=== PATIENT | female | born 1945 | race Caucasian/White ===

== ENCOUNTER 2022-10-19 15:10 | Outpatient (CLI) | payer MEDICARE, BC | END 2022-10-19 23:59 | disposition critical access hospital (66) | LOC: EMS 15:10 | DX: R55 Syncope and collapse (principal); R53.1 Weakness; R23.1 Pallor | CPT/HCPCS: A0425; A0427 ==

== ENCOUNTER 2022-10-19 15:27 | Emergency (ER) | payer MEDICARE, BC ==
--- NOTE | 2022-10-19 15:43 | ED Physician Documentation ---
PD HPI SYNCOPE - Stated complaint Stated Complaint: SYNCOPE - Chief complaint Chief Complaint: Neuro - History obtained from History obtained from: Patient, Family ( was present), EMS - History of Present Illness Witnessed: Witnessed Timing - onset: How many minutes ago (30), Today Duration: Minutes (The patient states she was feeling slightly short of breath and lightheaded. She had been doing light activity earlier in the day and felt tired. She sat in her recliner with the lightheaded feeling and was seen to faint and be pale and sweaty. Recovered in a minute or two.) Preceding symptoms: Dyspnea (The patient has been having some issues with dyspnea on exertion and fatigue over the last several weeks or months. No noted edema.), Light headed. No: Chest pain, Palpitations Associated symptoms: Nausea / vomiting (nausea without vomiting.). No: Seizure, Chest pain Contributing factors: Decreased PO intake. No: Recent med change, Exertion Injury occurred: No: Fell, Head injury Similar symptoms before: Has not had sx before Recently seen: Not recently seen Review of Systems Constitutional: denies: Fever Nose: denies: Rhinorrhea / runny nose, Congestion Throat: denies: Sore throat Cardiac: reports: Palpitations (occasional). denies: Chest pain / pressure, Ped al edema, Calf pain Respiratory: reports: Dyspnea (with activity/exertion for the past weeks/months.), Wheezing. denies: Cough GI: denies: Vomiting, Diarrhea, Bloody / black stool Musculoskeletal: reports: Neck pain (She has had upper thoracic and lower neck pain on range of motion for several days. She states she typically would go to the chiropractor for this.) Neurologic: denies: Focal weakness, Numbness, Altered mental status, Headache PD PAST MEDICAL HISTORY - Past Medical History Cardiovascular: Hypertension, High cholesterol, Murmur (evaluation of heart murmur by ECHO 2013 showed mild MR, EF 65%, and no acute process. ) Neuro: None Endocrine/Autoimmune: None - Past Surgical History Past Surgical History: Yes HEENT: Tonsil/Adenoidectomy - Present Medications Home Medications: Ambulatory Orders Medication Instructions Recorded Confirmed Lisinopril 20 mg PO DAILY 09/09/13 09/09/13 - Allergies Allergies/Adverse Reactions: Allergies Allergy/AdvReac Type Severity Reaction Status Date / Time codeine AdvReac Intermediate Nausea Verified 10/19/22 15:36 - Social History Does the pt smoke?: No Smoking Status: Never smoker Does the pt drink ETOH?: No Does the pt have substance abuse?: No - Immunizations Immunizations are current?: Yes - POLST Patient has POLST: No PD ED PE NORMAL - Vitals Vital signs reviewed: Yes - General General: Alert and oriented X 3, No acute distress, Well developed/nourished - Neck Neck: Supple, no meningeal sign, No adenopathy, No JVD - Cardiac Cardiac: RRR, Other (loud 3/6 murmur anterior chest with radiation to neck. Mild exp wheezing noted posteriorly. Faint mild crackles at bases only. ) - Respiratory Respiratory: No respiratory distress. No: Clear bilaterally - Abdomen Abdomen: Normal bowel sounds, Soft, Non tender, Non distended - Back Back: No CVA TTP - Derm Derm: Normal color, Warm and dry - Extremities Extremities: No edema, No calf tenderness / cord - Neuro Neuro: Alert and oriented X 3, No motor deficit, No sensory deficit, Normal speech Eye Opening: Spontaneous Motor: Obeys Commands Verbal: Oriented GCS Score: 15 Results - Vitals Vitals: Vital Signs - 24 hr 10/19/22 10/19/22 10/19/22 15:30 15:36 17:04 Temperature 37.1 C Heart Rate 84 88 78 Respiratory 14 11 L 18 Rate Blood Pressure 173/72 H O2 Saturation 98 91 L 10/19/22 17:37 Temperature Heart Rate 105 H Respiratory Rate Blood Pressure 146/81 H O2 Saturation 95 Oxygen O2 Source Room air - EKG (time done) 15:38 EKG releavant findings:: EKG personally interpreted by author of this note. Relevant findings are: Rate: Rate (enter#) Rhythm: NSR (84) Purdys: Normal Intervals: Normal LA QRS: LVH Ischemia: Normal ST segments. No: ST elevation c/w ischemia, ST depression Compare to prior EKG: Changed from prior EKG (2013 ECG showing similar morphology with now increased LVH and repol changes. ) - Labs Labs: Laboratory Tests 10/19/22 10/19/22 10/19/22 16:01 16:01 16:01 WBC 6.5 RBC 4.00 L Hgb 11.7 L Hct 34.6 L MCV 86.5 MCH 29.3 MCHC 33.8 RDW 12.5 Plt Count 259 MPV 10.0 Neut # (Auto) 4.2 Lymph # (Auto) 1.8 Day # (Auto) 0.4 Eos # (Auto) 0.1 Baso # (Auto) 0.1 Absolute Nucleated RBC 0.00 Nucleated RBC % 0.0 D-Dimer Sodium 136 Potassium 2.4 L* Chloride 100 L Carbon Dioxide 27 Anion Gap 9.0 BUN 18 Creatinine 0.6 Estimated GFR (MDRD) 97 Glucose 149 H Calcium 8.7 Magnesium 1.7 Total Bilirubin 0.7 AST 21 ALT 17 Alkaline Phosphatase 26 L Troponin I High Sens 16.2 H* B-Natriuretic Peptide Total Protein 6.5 L Albumin 3.7 Globulin 2.8 Albumin/Globulin Ratio 1.3 Lipase 35 10/19/22 10/19/22 10/19/22 16:01 17:03 17:03 WBC RBC Hgb Hct MCV MCH MCHC RDW Plt Count MPV Neut # (Auto) Lymph # (Auto) Day # (Auto) Eos # (Auto) Baso # (Auto) Absolute Nucleated RBC Nucleated RBC % D-Dimer 266.1 H Sodium Potassium Chloride Carbon Dioxide Anion Gap BUN Creatinine Estimated GFR (MDRD) Glucose Calcium Magnesium Total Bilirubin AST ALT Alkaline Phosphatase Troponin I High Sens 30.9 H* B-Natriuretic Peptide 498 H Total Protein Albumin Globulin Albumin/Globulin Ratio Lipase - Rads (name of study) chest xray Relevant Findings:: Prelim report reviewed (portable chest xray within normal limits. ), EMP independent interpretation of test (mild enlarged heart. Minimal vascular congestion.), See rad report PD Medical Decision Making - ED course Complexity details: considered differential (The patient says she was feeling lightheaded and sat down in the chair but was pale and sweaty and was seen to faint. She recalls her talking to EMS so was out only a minute or so. Feeling okay after.), d/w patient, other (EMS reports that he did EKG and blood pressure as well as fingerstick blood sugar. Blood sugar was good. Blood pressure 160s systolic. Heart rate regular.) Reviewed Lab Results: Her initial troponin was marginally above normal at 16. A 1-1/2-hour repeat was now 31. This is still quite low and easily may be a type II ischemia from the syncope. However it does need trending to see the the rate of rise for concern of a more significant injury. Her BNP is slightly elevated but her chest x-ray does not have notable vascular congestion. She had some wheezing and was given a albuterol nebulizer which helped some moderately. We were not able to get an echo as the tech was already gone for the day. Her D-dimer is 286 which age- adjusted is well in normal limits. I talked with her about wanting to keep her in the hospital overnight for repeat troponin and repeat potassium and watching for abnormal rhythms. She is in agreement. She states she was feeling a little anxious and asked medication that way. She also is still having the neck pain she had had recently and I will offered some Toradol. We will also given aspirin for concern of ACS. ED course: Her episode sounds like a vagal syncope. She did feel some nausea and had. She has been having shortness of breath and exertional dyspnea for weeks to months but has not been particularly worse. She denied any chest pain today. On exam she appears well. There is no pedal edema nor calf tenderness. She do es however have a fairly loud heart murmur that she was not aware of being that prominent. She states it had been noted a heart murmur in 2013 and had an echocardiogram at that point. No subsequent evaluations. Her chest x-rays does show some mild vascular congestion. There is some expiratory wheezing noted and she states history of seasonal allergies. Her dyspnea may be bronchial irritation or reactive airways. However I am concerned about the murmur in combination with the syncope and shortness of breath. I did order an echocardiogram. Believe the tach is still in house. Of concern in particular would be critical aortic stenosis. However her blood pressure and heart rate and such are good here at this point. A prompt follow-up evaluation could be done outpatient if wanted able to get the echo at this point. Her BNP is slightly elevated at 540s. Initial troponin was negative at 16 and we will repeat it now at 1-1/2 hours later. Certainly AK would be a consideration or concern. She did have a brief drop in oxygenation to 89 to 90% with a good Plath reading while I was talking with her. She sounded wheezy at the time. This lasted just less than a minute and then back to 96% with a couple of deep breaths and a cough. Consider mucous plugging. Her potassium was 2.4. Magnesium was normal as was calcium. She is not anemic. Renal function is okay. At this point we are awaiting repeat troponin and to see if we can get an ultrasound. Repeat troponin showed a increase from 16-31. This is still relatively low and may represent demand ischemia. However it does need trending further. She also has a low potassium of 2.4. She has some symptoms that could represent congestive failure and a murmur that needs evaluating. I think she meets criteria for observation. We can talk to the hospitalist. She is feeling slightly anxious. She does not normally take medications for that but I did offer her some lorazepam. I also gave Toradol for her upper back pain. Change of care at time of shift change and verbal report given to Dr. Smalls. Departure - Departure Disposition: ED Place in Observation Clinical Impression: Elevated troponin, Murmur, cardiac, Exertional dyspnea, Hypokalemia Syncope Qualifiers: Syncope type: unspecified Qualified Code(s): R55 - Syncope and collapse Condition: Stable Record reviewed to determine appropriate education?: Yes
[2022-10-19 16:09] LABS: BASOPHILS # (AUTO) 0.1 10^3/uL (0.0-0.1); BASOPHILS % (AUTO) 1.1 %; EOSINOPHILS # (AUTO) 0.1 10^3/uL (0.0-0.7); EOSINOPHILS % (AUTO) 1.5 %; HCT - HEMATOCRIT 34.6 % (37.0-47.0); HGB - HEMOGLOBIN 11.7 g/dL (12.0-16.0); LYMPHOCYTES # (AUTO) 1.8 10^3/uL (1.5-3.5); LYMPHOCYTES % (AUTO) 27.1 %; MEAN CORPUSCULAR HEMOGLOBIN 29.3 pg (27.0-31.0); MEAN CORPUSCULAR HGB CONC 33.8 g/dL (32.0-36.0); MEAN CORPUSCULAR VOLUME 86.5 fL (81.0-99.0); MONOCYTES # (AUTO) 0.4 10^3/uL (0.0-1.0); NEUTROPHILS # (AUTO) 4.2 10^3/uL (1.5-6.6); PLT - PLATELET COUNT 259 10^3/uL (130-450); RED CELL DISTRIBUTION WIDTH 12.5 % (12.0-15.0); WHITE BLOOD COUNT 6.5 x10^3/uL (4.8-10.8)
[2022-10-19 16:26] LABS: ALBUMIN 3.7 g/dL (3.2-5.5); ALBUMIN/GLOBULIN RATIO 1.3 (1.0-2.2); BILIRUBIN,TOTAL 0.7 mg/dL (0.2-1.0); CALCIUM 8.7 mg/dL (8.5-10.3); CREATININE 0.6 mg/dL (0.4-1.0); MAGNESIUM 1.7 mg/dL (1.7-2.8); TOTAL PROTEIN 6.5 g/dL (6.7-8.2)
[2022-10-19 16:28] LABS: POTASSIUM 2.4 mmol/L (3.5-5.0)
[2022-10-19] MEDS ORDERED: POTASSIUM CHLOR 10 MEQ/100 ML 10 MEQ/100 ML BAG IV ONE (16:31)
[2022-10-19] MEDS ORDERED: POTASSIUM BICARB 25 MEQ TABLET PO STA ×2 (16:31→17:28)
[2022-10-19] MEDS ORDERED: ALBUTEROL NEB 2.5 MG/3 ML INH STA (16:47)
[2022-10-19] MEDS ORDERED: ALBUTEROL NEB 2.5 MG/3 ML INH ONE (17:04)
--- NOTE | 2022-10-19 17:16 | XRAY Report ---
PROCEDURE: Chest 1 View X-Ray INDICATIONS: dyspnea TECHNIQUE: One view of the chest was acquired. COMPARISON: None. FINDINGS: Surgical changes and devices: None. Lungs and pleura: No pleural effusions or pneumothorax. Lungs are clear. Mediastinum: Mediastinal contours appear normal. Heart size is normal. Bones and chest wall: No suspicious bony lesions. Age-appropriate degenerative changes are seen. Overlying soft tissues appear unremarkable. IMPRESSION: Portable chest within normal limits for age. Reviewed by: Ry Peña MD on 10/19/2022 4:15 PM AKDT Approved by: Ry Peña MD on 10/19/2022 4:15 PM AKDT Station ID: [id number]
[2022-10-19] MEDS ORDERED: KETOROLAC 15 MG/ML VIAL IVP STA (18:24)
[2022-10-19] MEDS ORDERED: ASPIRIN CHEW 81 MG TABLET PO STA (18:24)
[2022-10-19] MEDS ORDERED: LORazepam 2 MG/ML VIAL IVP STA (18:25)
[2022-10-19 21:13] LABS: CALCIUM 8.6 mg/dL (8.5-10.3); CREATININE 0.7 mg/dL (0.4-1.0); POTASSIUM 3.7 mmol/L (3.5-5.0)
--- NOTE | 2022-10-19 21:50 | ED Physician Documentation ---
ED Addendum - Addendum Addendum: 10/19/22 21:49 Patient was signed out to me by Dr. Nicholson awaiting a repeat troponin. This came back elevated above her initial troponin. Her D-dimer is elevated, that would be considered negative with age adjustment. Given her elevated BNP and elevated troponin, in addition to her syncope, we will obtain a CT angiogram of the chest for possible PE. If this is negative, patient will likely need to be treated and transferred for NSTEMI. Patient will be signed out to Dr. Gasca awaiting CT scan. This document was made in part using voice recognition software. While efforts are made to proofread this document, sound alike and grammatical errors may occur.
--- NOTE | 2022-10-19 23:03 | CT Report ---
PROCEDURE: ANGIO CHEST W/WO INDICATIONS: syncope, elevated d-dimer CONTRAST: 80mL Omni 350 TECHNIQUE: After the administration of intravenous contrast, 2 mm axial images were acquired from the pulmonary apices to the posterior costophrenic angles during the arterial phase. In addition, 1 mm lung kernel and 5 mm soft tissue kernel reconstructions were performed. 3-dimensional coronal oblique maximum int ensity projection (MIP) reformats, 8 mm axial MIP, and 5 mm coronal and sagittal MPR reformats were t hen performed through the thorax. For radiation dose reduction, the following was used: automated exp osure control, adjustment of mA and/or kV according to patient size. COMPARISON: FINDINGS: Image quality: Excellent. Pulmonary arteries: Pulmonary arteries are normal in size, and demonstrate no intraluminal filling d efects to suggest central pulmonary embolism. Lower Neck: No lymphadenopathy by size criteria. Thyroid: Visualized thyroid demonstrates no discrete nodules. Axillae: No lymphadenopathy by size criteria. Chest Wall: Unremarkable. Bones: Visualized osseous structures demonstrate no suspicious lesions. Lungs and Airways: There is a region of masslike consolidation or pleural-based nodule laterally in t he right upper lobe measuring up to 2.1 cm on series 6 image 135. There are indistinct confluent grou ndglass opacities within the lower lobe which are nonspecific but suggestive of an infectious or infl ammatory process. Linear areas of scarring and atelectasis are demonstrated bilaterally. Mild interlo bular septal thickening may reflect mild pulmonary edema. The trachea and central airways are patent. Pleura: No pneumothorax.There are minimal bilateral pleural effusions. Heart: Heart size is normal. No pericardial effusion. Thoracic Vessels: The thoracic aorta is normal in size. Mediastinum and Jocelyn: There are mildly enlarged mediastinal lymph nodes including a precarinal node m easuring up to 1.1 cm in short axis. Esophagus: No wall thickening. No hiatal hernia. Abdomen: Visualized upper abdomen demonstrates a cyst laterally in the left hepatic lobe. There is a partially visualized partly calcified gallstone in the gallbladder. IMPRESSION: 1. Peripheral pleural-based nodular or masslike consolidation within the right upper lobe. Differenti al includes pneumonia versus a neoplasm. Further evaluation may obtained with PET/CT versus short-ter m interval follow up to demonstrate resolution if there is clinical suspicion for infection. 2. Mildly enlarged mediastinal lymph nodes are nonspecific and may be reactive but metastatic disease cannot be excluded. 3. Cholelithiasis within a partially visualized gallbladder. Reviewed by: Dontrell Machado MD on 10/19/2022 11:01 PM PDT Approved by: Dontrell Machado MD on 10/19/2022 11:01 PM PDT Station ID: [id number]
[2022-10-20] MEDS ORDERED: HEPARIN 25000UNITS/500ML (D5W) 25,000 UNIT/500 ML BAG IV SCH (02:00)
--- NOTE | 2022-10-20 03:29 | ED Physician Documentation ---
ED Addendum - Addendum Addendum: 10/20/22 03:22 I received signout on this patient from Dr. Rose, who, in turn, received signout from Dr. iNcholson. Please see Dr. Nicholson's note for complete history and physical, and Dr. Rose's note for his addendum. In brief, patient presented to the emergency department for a syncopal episode. Patient tells me that she had just come inside the house, and began to become dyspneic when climbing up the stairs at home. She says she has had similar dyspnea on exertion for at least the past few weeks, but this episode was associated with lightheadedness and sensation that she was going to pass out. She therefore sat down, and she says that someone else who was present did w itness the patient lose consciousness and appear to be diaphoretic and pale. The patient says she was told she was unconscious for "a few minutes" (per patient). Patient denies history of syncopal episode. She says she did not have any chest discomfort at any time. There were no acute findings on the EKG. Her initial high-sensitivity troponin was 16.2, with a repeat approximately 1 hour later of 30.9, and a repeat a few hours later of 221. A CT of the chest (angio) was undertaken; There are no acute findings on the chest CT. Specifically, no evidence of PE. Incidental note is made of gallstones as well as a right lung, pleural based 2.1 cm mass. Patient has a 3/6 systolic ejection murmur on the exam. Patient says she is aware that she has a heart murmur, although her description would suggest it had been more subtle (patient says "some doctors say they can hear it, others say then can't"). Given the rising troponin levels with no acute findings on the EKG, concerns would include NSTEMI. Given the syncopal episode with the significant heart murmur on exam, critical aortic stenosis would also be on the differential diagnosis. During my shift, a repeat high-sensitivity troponin is 3319, reflecting an ongoing and significantly increasing troponin level, further raising concern for NSTEMI. IV Heparin drip started with weight-based bolus. No beds available at [facility]. A bed is available at [facility]. I discussed this case with Dr. Valdez, the hospitalist at [facility]. He agrees transfer is appropriate and accepts patient to [facility]. 10/20/22 05:55
[2022-10-20] MEDS ORDERED: ALPRAZolam 0.25 MG TABLET PO STA (03:52)
[2022-10-20 04:29] VITALS: BP 143/80
== END 2022-10-20 04:28 | disposition short-term general hospital (02) ==
LOC: EDUNIT# → ED 15:27
DX: R55 Syncope and collapse (principal); R77.8 Other specified abnormalities of plasma proteins; R01.1 Cardiac murmur, unspecified; R06.09 Other forms of dyspnea; E87.6 Hypokalemia; I10 Essential (primary) hypertension; E78.00 Pure hypercholesterolemia, unspecified; Z79.899 Other long term (current) drug therapy
CPT/HCPCS: 36415; 71045; 71275; 80048; 80053; 83690; 83735; 83880; 84484; 85025; 85379; 87635; 93005; 94640; 96374; 96375; 99284; 99285; A9270; J2060; Q9967

== ENCOUNTER 2022-10-20 04:30 | Outpatient (CLI) | payer MEDICARE, BC | END 2022-10-20 04:31 | disposition short-term general hospital (02) | LOC: EMS 04:30 | PROVIDERS: ATTEND Emergency Medicine | DX: I21.4 Non-ST elevation (NSTEMI) myocardial infarction (principal) | CPT/HCPCS: A0425; A0426 ==

== ENCOUNTER 2023-11-02 15:59 | Outpatient (CLI) | payer MEDICARE, BC ==
--- NOTE | 2023-11-03 17:07 | Ultrasound Report ---
PROCEDURE: Carotid Doppler Complete INDICATIONS: ESSENTIAL HYPERTENSION TECHNIQUE: Color and pulse Doppler interrogation was performed of both carotid systems, with image documentation and velocity measurements. COMPARISON: None. FINDINGS: Right side: Brachial blood pressure: 182 mm Hg. Common carotid artery peak systolic velocity: 65.2 cm/sec. Internal carotid artery peak systolic velocity: 127.2 cm/sec. Internal carotid artery end diastolic velocity: 23.7 cm/sec. External carotid artery peak systolic velocity: Up to 303.7 cm/sec. ICA/CCA peak systolic ratio: 1.9 . Manrique scale imaging description: Moderate atherosclerotic plaque. Percent internal carotid artery stenosis: Less than 50 percent stenosis. Vertebral artery: Flow direction is antegrade. Left side: Brachial blood pressure: 172 mm Hg. Common carotid artery peak systolic velocity: 1 a 1.3 cm/sec. Internal carotid artery peak systolic velocity: 95.9 cm/sec. Internal carotid artery end diastolic velocity: 21.5 cm/sec. External carotid artery peak systolic velocity: Up to 196.5 cm/sec. ICA/CCA peak systolic ratio: 0.9 . Manrique scale imaging description: Moderate atherosclerotic plaque. Percent internal carotid artery stenosis: Less than 50 percent stenosis. Vertebral artery: Flow direction is antegrade. IMPRESSION: 1. In the right internal carotid artery, there is less than 50 percent stenosis based on peak systoli c velocity criteria. 2. In the left internal carotid artery, there is less than 50 percent stenosis based on peak systolic velocity criteria. 3. Antegrade blood flow within the right vertebral artery. 4. Antegrade blood flow within the left vertebral artery. 5. Elevated velocities in the bilateral external carotid arteries suggestive of stenoses. The estimate of stenosis included in the report of the imaging study was calculated using the [facility]-end orsed standards of carotid artery stenosis. Reviewed by: Tiffany Taylor MD on 11/03/2023 5:06 PM PDT Approved by: Tiffany Taylor MD on 11/03/2023 5:06 PM PDT Station ID: [id number]
== END 2023-11-02 16:00 | disposition home or self-care (01) ==
LOC: DI 15:59
DX: I65.23 Occlusion and stenosis of bilateral carotid arteries (principal)
CPT/HCPCS: 93880